=== PATIENT | female | born 1990 | race Caucasian/White ===

== ENCOUNTER 2017-05-09 10:52 | Inpatient (IN) | payer MEDICAID ==
[~2017-05-09] VITALS: Ht 154.9 cm; Wt 115.7 kg
[2017-05-09] MEDS ORDERED: PREN-546 PO (11:18)
[2017-05-09] MEDS ORDERED: FERR90TA PO (11:18)
[2017-05-09] MEDS ORDERED: OXYTOCIN 20 UNITS in LACTATED RINGERS 1,000 ML IV SCH (11:19)
[2017-05-09] MEDS ORDERED: NALBUPHINE 10 MG/ML AMP IVP PRN (11:20)
[2017-05-09] MEDS ORDERED: METHYLERGONOVINE 0.2 MG/ML AMP IM PRN (11:20)
[2017-05-09] MEDS ORDERED: OXYTOCIN 10 UNITS/ML VIAL IM PRN (11:20)
[2017-05-09] MEDS ORDERED: PROMETHAZINE 25 MG/ML VIAL IM PRN (11:20)
[2017-05-09 12:05] LABS: BASOPHILS # (AUTO) 0.1 K/uL (0.00-0.22); BASOPHILS % (AUTO) 0.8 % (0.0-2.0); EOSINOPHILS # (AUTO) 0.1 K/uL (0-0.4); HEMATOCRIT 36.9 % (36-48); HEMOGLOBIN 12.3 g/dL (12.0-16.0); LYMPHOCYTES # (AUTO) 1.3 K/uL (2.5-16.5); LYMPHOCYTES % (AUTO) 12.7 % (20.5-51.1); MEAN CORPUSCULAR HEMOGLOBIN 30 pg (27-31); MEAN CORPUSCULAR HGB CONC 34 g/dL (33-37); MEAN CORPUSCULAR VOLUME 90.4 fL (80-94); MONOCYTES # (AUTO) 0.6 K/uL (0.8-1.0); MONOCYTES % (AUTO) 5.8 % (1.7-9.3); NEUTROPHILS # (AUTO) 8.3 K/uL (1.8-7.7); NEUTROPHILS % (AUTO) 79.7 % (42.2-75.2); PLATELET COUNT (AUTO) 224 K/uL (140-450); RED BLOOD CELL COUNT(AUTO) 4.08 MIL/uL (4.20-5.40); RED CELL DISTRIBUTION WIDTH 13.1 % (11.6-13.7); WHITE BLOOD COUNT (AUTO) 10.4 K/uL (4.8-10.8)
[2017-05-09 13:57] LABS: APPEARANCE,URINE SL CLOUDY (CLEAR); BILIRUBIN,URINE NEGATIVE (NEGATIVE); BLOOD, URINE NEGATIVE (NEGATIVE); COLOR,URINE YELLOW (YELLOW); LEUKOCYTE ESTERASE ,URINE 2+ (NEGATIVE); NITRITE, URINE NEGATIVE (NEGATIVE); PH,URINE 6.5 (5.0-9.0); UGLUCOSE NEGATIVE (NEGATIVE)
[2017-05-09 14:00] LABS: RBC,URINE 0-5 (RARE) /HPF (0-5)
[2017-05-09 14:01] LABS: WBC,URINE 20-60 /HPF (0-5)
[2017-05-09] MEDS ORDERED: MISOPROSTOL 25 MCG TAB ONE ×2 (15:00→22:02)
[2017-05-09] MEDS: LACTATED RINGERS 1,000 ML IV SCH ×2 (15:59→23:53)
[2017-05-09 18:08] VITALS: BP 115/56
[2017-05-09] MEDS ORDERED: MISOPROSTOL 25 MCG TAB VG PRN (20:20)
[2017-05-09] MEDS ORDERED: INFLUENZA VIRUS VACCINE QUAD 0.5 ML SYR IMVAC SCH (22:00)
[2017-05-10] MEDS ORDERED: OXYTOCIN 20 UNITS/LR PREMIX 1,000 ML IV ONE (02:10)
[2017-05-10] MEDS ORDERED: ceFAZolin 1,000 MG VIAL ONE (06:54)
[2017-05-10] MEDS ORDERED: OXYTOCIN 10 UNITS/ML VIAL ONE ×4 (07:26→17:50)
[2017-05-10] MEDS ORDERED: CITRIC ACID/SODIUM CITRATE 30 ML UDC PO SCH (07:30)
[2017-05-10] MEDS ORDERED: CITRIC ACID/SODIUM CITRATE 30 ML UDC ONE (07:32)
[2017-05-10] MEDS ORDERED: OXYTOCIN 10 UNITS/ML VIAL IV ONE (07:35)
[2017-05-10] MEDS ORDERED: ePHEDrine 50 MG/ML VIAL IV ONE (07:35)
[2017-05-10] MEDS ORDERED: BUPIVACAINE-MPF 0.5% 30 ML VIAL INJ ONE (07:35)
[2017-05-10] MEDS ORDERED: fentaNYL 0.05 MG/ML VIAL ONE (07:46)
[2017-05-10] MEDS ORDERED: MORPHINE PRES FREE 10 MG/10 ML AMP IV ONE (07:46)
[2017-05-10] MEDS ORDERED: ceFAZolin 1,000 MG VIAL IVP ONE (08:00)
[2017-05-10] MEDS ORDERED: TRIMETHOBENZAMIDE 200 MG/2 ML SYR IM PRN (08:05)
[2017-05-10] MEDS ORDERED: MEASLES, MUMPS, AND RUBELLA 1 VIAL SQVAC PRN (08:05)
[2017-05-10] MEDS ORDERED: SIMETHICONE 80 MG TAB.CHEW PO PRN (08:05)
[2017-05-10] MEDS ORDERED: METHYLERGONOVINE 0.2 MG/ML AMP IM PRN (08:05)
[2017-05-10 08:10] LABS: BARBITURATE, URINE NEG. ng/ml (NEG <=200); BENZODIAZEPINE, URINE NEG. ng/mL (NEG <=200); CANNABINOID, URINE NEG. ng/mL (NEG <=50); COCAINE, URINE NEG. ng/mL (NEG <=300); OPIATE, URINE NEG. ng/mL (NEG <=2000); PHENCYCLIDINE SCREEN,URINE NEG. ng/mL (NEG <=25)
[2017-05-10] MEDS ORDERED: KETOROLAC 60 MG/2 ML VIAL IM PRN (08:10)
[2017-05-10] MEDS ORDERED: diphenhydrAMINE 50 MG/ML VIAL IVP PRN (08:10)
[2017-05-10] MEDS ORDERED: ONDANSETRON 4 MG/2 ML VIAL IVP PRN ×2 (08:10)
[2017-05-10] MEDS ORDERED: NALBUPHINE 10 MG/ML AMP IVP PRN (08:10)
[2017-05-10] MEDS ORDERED: NALOXONE 0.4 MG/ML VIAL IVP PRN ×3 (08:10)
[2017-05-10] MEDS ORDERED: ONDANSETRON 4 MG/2 ML VIAL ONE (08:56)
[2017-05-10] MEDS ORDERED: MISOPROSTOL 100 MCG TAB ONE (09:22)
[2017-05-10] MEDS ORDERED: CARBOPROST 250 MCG/ML AMP IM ONE (09:22)
[2017-05-10] MEDS ORDERED: METHYLERGONOVINE 0.2 MG/ML AMP ONE (09:22)
[2017-05-10] MEDS ORDERED: MISOPROSTOL 100 MCG TAB RC SCH (09:30)
[2017-05-10] MEDS ORDERED: CARBOPROST 250 MCG/ML AMP IM SCH ×3 (09:30→11:48)
--- NOTE | 2017-05-10 09:34 | NUR ---
PATIENT HAS BEEN SCREENED AND CATEGORIZED LOW NUTRITION RISK. PATIENT WILL BE SEEN WITHIN 7 DAYS OF ADMISSION. 05/16/[address]
[2017-05-10] MEDS ORDERED: OXYTOCIN 20 UNITS in LACTATED RINGERS 1,000 ML IV SCH (11:19)
[2017-05-10] MEDS: OXYTOCIN 20 UNITS in LACTATED RINGERS 1,000 ML IV SCH ×2 (17:40→17:50)
[2017-05-10] MEDS: DOCUSATE SOD/SENNA 50/8.6 MG 1 TAB PO SCH (20:44)
[2017-05-11] MEDS: OXYTOCIN 20 UNITS in LACTATED RINGERS 1,000 ML IV SCH (01:18)
[2017-05-11] MEDS ORDERED: TEMAZEPAM 15 MG CAP PO PRN (02:00)
[2017-05-11] MEDS ORDERED: IBUPROFEN 800 MG TAB PO PRN ×2 (02:00→03:20)
[2017-05-11] MEDS ORDERED: oxyCODONE/APAP 5/325 MG 1 TAB TAB PO PRN (02:00)
[2017-05-11] MEDS ORDERED: HYDROcodone/APAP 5/325 MG 1 TAB TAB PO PRN (02:00)
[2017-05-11] MEDS ORDERED: HYDROcodone/APAP 10/325 MG 1 TAB TAB PO PRN (03:20)
[2017-05-11] MEDS: oxyCODONE/APAP 5/325 MG 1 TAB TAB PO PRN ×3 (03:40→16:19)
[2017-05-11 09:24] LABS: BASOPHILS # (AUTO) 0.1 K/uL (0.00-0.22); BASOPHILS % (AUTO) 0.5 % (0.0-2.0); EOSINOPHILS # (AUTO) 0.1 K/uL (0-0.4); EOSINOPHILS % (AUTO) 0.3 % (0.0-4.0); HEMATOCRIT 29.4 % (36-48); HEMOGLOBIN 9.7 g/dL (12.0-16.0); LYMPHOCYTES # (AUTO) 1.1 K/uL (2.5-16.5); LYMPHOCYTES % (AUTO) 6.3 % (20.5-51.1); MEAN CORPUSCULAR HEMOGLOBIN 30 pg (27-31); MEAN CORPUSCULAR HGB CONC 33 g/dL (33-37); MEAN CORPUSCULAR VOLUME 90.9 fL (80-94); MONOCYTES # (AUTO) 1.1 K/uL (0.8-1.0); MONOCYTES % (AUTO) 6.1 % (1.7-9.3); NEUTROPHILS # (AUTO) 15.1 K/uL (1.8-7.7); NEUTROPHILS % (AUTO) 86.8 % (42.2-75.2); PLATELET COUNT (AUTO) 178 K/uL (140-450); RED BLOOD CELL COUNT(AUTO) 3.23 MIL/uL (4.20-5.40); RED CELL DISTRIBUTION WIDTH 13.3 % (11.6-13.7); WHITE BLOOD COUNT (AUTO) 17.5 K/uL (4.8-10.8)
[2017-05-11] MEDS: HYDROcodone/APAP 5/325 MG 1 TAB TAB PO PRN (20:42)
[2017-05-11] MEDS: DOCUSATE SOD/SENNA 50/8.6 MG 1 TAB PO SCH (20:43)
[2017-05-12] MEDS: HYDROcodone/APAP 5/325 MG 1 TAB TAB PO PRN ×4 (01:24→16:33)
[2017-05-12] MEDS ORDERED: IBUP-1842 PO (09:28)
== END 2017-05-12 17:40 | disposition home or self-care (01) | DRG 540 ==
LOC: MLD 10:52 → MFCC 05-10 09:50
PROVIDERS: ADMIT Obstetrics & Gynecology; ATTEND Obstetrics & Gynecology
PROC: 3E033VJ Introduction of Other Hormone into Peripheral Vein, Percutaneous Approach (ICD-10-PCS; 2017-05-10)
PROC: 10D00Z1 Extraction of Products of Conception, Low, Open Approach (ICD-10-PCS; principal; 2017-05-10 07:30)
PROC: 3E0234Z Introduction of Serum, Toxoid and Vaccine into Muscle, Percutaneous Approach (ICD-10-PCS; 2017-05-12)
PROC: 3E0134Z Introduction of Serum, Toxoid and Vaccine into Subcutaneous Tissue, Percutaneous Approach (ICD-10-PCS; 2017-05-12)
DX: O33.9 Maternal care for disproportion, unspecified (principal); Z68.42 Body mass index [BMI] 45.0-49.9, adult; O62.2 Other uterine inertia; O99.214 Obesity complicating childbirth; E66.01 Morbid (severe) obesity due to excess calories; Z37.0 Single live birth; Z3A.39 39 weeks gestation of pregnancy; Z23 Encounter for immunization; Z83.3 Family history of diabetes mellitus; Z80.3 Family history of malignant neoplasm of breast
CPT/HCPCS: 36415; 59200; 76805; 80305; 81001; 85025; 86592; 86886; 86900; 86901; 87086; 90707; 90715; J0690; J2210; J2270; J2405; J2590; J3010; J3490; J7060; J7120; Q0092